=== PATIENT | male | born 1990 | race Caucasian/White ===

== ENCOUNTER → 2020-04-06 12:44 | Outpatient (BNVA) | payer OTHER, SELFPAY | PROVIDERS: Family Provider Family Medicine; Referring Provider Dermatology; Visit Provider Dermatology | DX: L64.9 Androgenic alopecia, unspecified (principal) | CPT/HCPCS: 99203 ==

== ENCOUNTER → 2020-04-21 15:00 | Outpatient (BNVA) | payer OTHER, SELFPAY | PROVIDERS: Family Provider Family Medicine; Visit Provider Licensed Practical Nurse | DX: Z53.9 Procedure and treatment not carried out, unspecified reason (principal) ==

== ENCOUNTER → 2020-04-26 13:56 | Outpatient (BNVA) | payer OTHER, SELFPAY | PROVIDERS: Family Provider Family Medicine; Visit Provider Licensed Practical Nurse | DX: M25.512 Pain in left shoulder (principal); G89.29 Other chronic pain; M50.020 Cervical disc disorder with myelopathy, mid-cervical region, unspecified level | CPT/HCPCS: 99214 ==

== ENCOUNTER 2020-05-31 08:09 | Outpatient (CLI) | payer OTHER, SELFPAY ==
--- NOTE | 2020-05-31 08:00 | US_ITS ---
WS: [id number] ULTRASOUND SOFT TISSUES LEFT neck. HISTORY: Left trapezius muscle pain. COMPARISON: None available. TECHNIQUE: 2-D and color Doppler imaging is submitted. Ultrasound is directed the soft tissues of the LEFT neck. There is no edema or fluid collection. Appe arance of the muscles and soft tissues are normal. No adenopathy. Symmetric appearance as compared to the RIGHT. US/US soft tissue/extremity [id number] IMPRESSION: Negative ultrasound LEFT neck.
== END 2020-05-31 08:10 | disposition home or self-care (01) ==
LOC: RAD 08:16
PROVIDERS: Visit Provider Licensed Practical Nurse
DX: M25.512 Pain in left shoulder (principal)
CPT/HCPCS: 76882

== ENCOUNTER → 2020-07-12 14:29 | Outpatient (BNVA) | payer OTHER, SELFPAY | PROVIDERS: Visit Provider Nurse Practitioner Family | DX: U07.1 COVID-19 (principal); J06.9 Acute upper respiratory infection, unspecified | CPT/HCPCS: 87635 ==

== ENCOUNTER → 2020-08-02 10:33 | Outpatient (BNVA) | payer OTHER, SELFPAY | PROVIDERS: Referring Provider Dermatology; Visit Provider Podiatrist Foot & Ankle Surgery | DX: M21.42 Flat foot [pes planus] (acquired), left foot; M25.572 Pain in left ankle and joints of left foot | CPT/HCPCS: 73630 ==

== ENCOUNTER 2020-08-18 11:58 | Outpatient (CLI) | payer OTHER, SELFPAY | END 2020-08-18 11:59 | disposition home or self-care (01) | LOC: SPT 11:59 | PROVIDERS: Visit Provider Podiatrist Foot & Ankle Surgery | DX: Z46.89 Encounter for fitting and adjustment of other specified devices (principal); M21.42 Flat foot [pes planus] (acquired), left foot; M25.572 Pain in left ankle and joints of left foot | CPT/HCPCS: L3030 ==

== ENCOUNTER → 2020-08-25 19:05 | Outpatient (BNVA) | payer OTHER, SELFPAY | PROVIDERS: Visit Provider Nurse Practitioner | DX: Z20.828 Contact with and (suspected) exposure to other viral communicable diseases (principal) | CPT/HCPCS: 87635 ==

== ENCOUNTER → 2020-08-26 12:27 | Outpatient (BNVA) | payer OTHER, SELFPAY | PROVIDERS: Visit Provider Nurse Practitioner | DX: Z20.828 Contact with and (suspected) exposure to other viral communicable diseases (principal) | CPT/HCPCS: 87635 ==

== ENCOUNTER 2020-10-11 12:34 | Outpatient (CLI) | payer OTHER, SELFPAY ==
[2020-10-11 15:26] LABS: Prostate Specific Antigen 0.745 ng/mL (0-4)
== END 2020-10-11 12:35 | disposition home or self-care (01) ==
PROVIDERS: Visit Provider Dermatology
DX: L64.9 Androgenic alopecia, unspecified (principal)
CPT/HCPCS: 36415; 84153

== ENCOUNTER 2020-12-28 22:37 | Emergency (ER) | payer OTHER, SELFPAY ==
[2020-12-28 22:40] VITALS: PULSE 126; RESP 18; TEMP 36.9; O2SAT 98; BMI 24.5
[2020-12-28] MEDS: ondansetron 2 mg/ML SDV 2 mL 4 MG IVP (22:40)
[2020-12-28 22:47] VITALS: BP 120/63; PULSE 130; RESP 18; O2SAT 98
--- NOTE | 2020-12-28 23:06 | ECG_ITS ---
[facility] Test Date: 2020-12-29 Pat Name: Aris Serrano Department: Room: Gender: Male Professor Of Business Administration: : 1990 Requested By: Urbano Roper Order Number: [id number] Fabien MD: Yohannes Colvin M.D. Measurements Intervals [place] Rate: 114 P: 59 OK: 195 QRS: 90 QRSD: 93 T: 59 QT: 361 QTc: 499 Interpretive Statements SINUS TACHYCARDIA POSSIBLE LEFT ATRIAL ENLARGEMENT [-0.1mV P WAVE IN V1/V2] NONSPECIFIC T-WAVE ABNORMALITY No previous ECG available for comparison Electronically Signed On 12-29-2020 18:28:28 CDT by Yohannes Colvin M.D. [id number]
--- NOTE | 2020-12-28 23:06 | XR_ITS ---
WS: [id number] Exam: XR chest 1V portable [id number] Date/Time of Exam: 12/28/2020 11:08 PM Reason For Exam: pain Findings: The lungs are clear and fully expanded. Costophrenic angles are sharp. No infiltrates. Bronchovascula r relief appears normal. Cardiac silhouette is unremarkable. Bony elements are intact. XR/XR chest 1V portable [id number] IMPRESSION: Unremarkable chest radiograph.
--- NOTE | 2020-12-28 23:07 | ED_ITS ---
HPI - Abdominal Pain General: Chief Complaint: Abdominal Pain Stated Complaint: abd pain Time Seen by Provider: 12/28/20 22:42 Source: patient Mode of arrival: ambulatory Limitations: no limitations History of Present Illness: HPI narrative: 30-year-old male who states that starting tonight at 630 start abdominal cramping had multiple episodes of vomiting. He states he also has had diarrhea as well. He states he is now had pain radiating into his chest. States the pain is diffuse in his abdomen and rates it an 8 out of 10. He states that he ate some old quinoa that may have made him ill. He denies any worsening improving factors. Denies any fevers. Associated Symptoms: Reports nausea and vomiting; Denies chills, dysuria and fever(s) Review of Systems Const: Denies: fever(s), chills, body aches or change in appetite Eyes: Denies: blurry vision or eye discomfort ENMT: Denies: throat pain or dental pain Card: Reports: chest pain Resp: Denies: dyspnea GI: Reports: abdominal pain, nausea and vomiting : Denies: dysuria Musc: Denies: neck pain or back pain Skin/Breast: Denies: rash Neuro: Denies: headache(s) Psych: Denies: depression Diogo/Lymph: Denies: easy bruising All/Imm: Denies: urticaria PFSH ED PFSH: Medical History (Updated 12/29/20 @ 00:59 by Urbano Roper MD) Cervical disc disorder with myelopathy of mid-cervical region Left shoulder pain Surgical History History of repair of ACL Family History Mother CAD (coronary artery disease) Social History Smoking and tobacco status: never smoked Alcohol intake: current Alcohol intake frequency: few times a month Household members: spouse Marital status: Current occupational status: employed Current occupation: Teacher aid and assistant inventory manager History of recent travel: Yes ([facility]) Physical Exam Const: COMMON NORMALS: no acute distress, patient oriented x3 and healthy appearing HENMT: COMMON NORMALS: normocephalic and atraumatic HEAD & SCALP: normocephalic and atraumatic Eye: COMMON NORMALS: Equal, round and reactive pupils present and EOMs intact bilaterally PUPIL: Yes Equal, round and reactive pupils present Neck/C-Spine: COMMON NORMALS: full ROM and supple Chest: COMMONS NORMALS: normal inspection of the chest and normal palpation of entire chest wall Resp: COMMON NORMALS: normal respiratory effort, No retractions, No use of accessory muscles and clear to auscultation bilaterally AUSCULTATION: clear to auscultation bilaterally Cardio: COMMON NORMALS: regular rhythm and No murmurs present (Cardio) RATE: tachycardic RHYTHM: regular rhythm GI: COMMON NORMALS: Normal to inspection, nondistended, normoactive bowel sounds present, Soft to palpation, non-tender and no masses PALPATION: Yes Soft to palpation Extremity: COMMON NORMALS: normal to inspection and full ROM Neuro: COMMON NORMALS: patient oriented x3, moves all extremities and no focal motor deficits Psych: COMMON NORMALS: mental status grossly normal, Normal thought process present and cooperative THOUGHT PROCESS: Normal thought process present Skin: COMMON NORMALS: no rashes or lesions noted and no wounds GENERAL SKIN EXAM: no rashes or lesions noted Course Vital Signs: Vital signs: Vital Signs Temperature 98.4 F 12/28/20 22:40 Pulse Rate 110 H 12/29/20 01:54 Respiratory Rate 18 12/29/20 01:54 Blood Pressure 106/64 12/29/20 01:54 Pulse Oximetry 100 12/29/20 01:54 MDM - Abdominal Pain MDM Narrative: Medical decision making narrative: Patient presents with vomiting is likely viral in origin. He does have an elevated white count likely stress reaction. Feels much improved after IV fluids and Zofran. Abdominal exam at discharge is benign. We will place him on Zofran for home and he is to follow-up his PCP in 2 to 4 days return to ER if worsening. Lab Data: Labs: Lab Results 12/28/20 12/28/20 12/28/20 Range/Units 23:20 23:30 23:30 WBC 14.6 H (4.0-10.0) 10^3/ uL RBC 5.63 H (4.1-5.3) 10^6/u L Hgb 16.5 (11.7-16.6) g/dL Hct 48.0 (42.0-52.0) % MCV 85.3 (80-94) fL MCH 29.3 (28.0-34.0) pg MCHC 34.4 (30.0-36.0) g/dL RDW 11.9 L (12.1-15.1) % Plt Count 264 (130-400) 10^3/c mm MPV 10.8 H (7.4-10.4) fL Neut % (Auto) 86.9 % Lymph % (Auto) 3.2 % Owen % (Auto) 9.0 % Eos % (Auto) 0.3 % Baso % (Auto) 0.2 % Neut # (Auto) 12.65 H (1.8-7.7) 10^3/u L Lymph # (Auto) 0.5 L (0.8-4.8) 10^3/u L Owen # (Auto) 1.3 H (0.2-0.9) 10^3/u L Eos # (Auto) 0.1 (0.0-0.8) 10^3/u L Baso # (Auto) 0.0 (0.0-0.1) 10^3/u L Nucleated RBC % (a uto) 0 % Nucleated RBCs # 0.0 /100WBC Sodium 140 (136-145) mmol/L Potassium 4.0 (3.5-5.1) mmol/L Chloride 103 (98-107) mmol/L Carbon Dioxide 21 L (22-29) mmol/L Anion Gap 20.0 H (5-19) BUN 17 (6-20) mg/dL Creatinine 1.0 (0.7-1.2) mg/dL GFR Calculation 87.7 L (90-130) mL/min Glucose 145 H (65-115) mg/dL Calculated Osmolal ity 294 (285-295) mOsm/k g Calcium 9.1 (8.5-10.5) mg/dL Total Bilirubin 1.2 (0.15-1.2) mg/dL AST 36 (0-40) U/L ALT 47 H (0-41) U/L Alkaline Phosphata se 53 (40-130) IU/L Total Protein 7.7 (6.6-8.7) g/dL Albumin 4.7 (3.5-5.2) g/dL Globulin 3.0 (1.3-4.6) g/dL Lipase 34 (13-60) U/L Urine Color Yellow (Yellow) Urine Appearance Clear (CLEAR) Urine pH 8 H (5-7) Ur Specific Gravit y 1.010 (1.005-1.030) Urine Protein Neg (Negative) Urine Glucose (UA) Norm (Normal) Urine Ketones 3+ H (Negative) Urine Blood Neg (Negative) Urine Nitrate Negative (Negative) Urine Bilirubin 1+ H (Negative) Prot Sulfosalicyli c Acd Negative (Negative) Urine Urobilinogen 1 H (Negative) mg/dL Ur Leukocyte Yessica ase Trace H (Negative) Urine RBC 0-4 H (0-2) /hpf Urine WBC 0-4 H (0-5) /hpf Ur Squamous Epith Cells 0-4 H (0-5) /hpf Amorphous Sediment Not Reportable Urine Bacteria Trace (NONE) /hpf Urine Mucus 2+ /hpf Imaging Data ^: CXR: Attestation: I personally reviewed and interpreted this imaging study as follows: My impression: No acute abnormality CT Abd/Pel: Attestation: I personally reviewed and interpreted this imaging study as follows: Radiologist's impression: [address] [address] [address] Scan Report Signed Patient: Aris Serrano Unit #: [id number] : 1990 Age/Sex: 30 / M ADM Date: 12/28/20 Loc: ER Room/Bed: Attending Dr: Ordering Provider/Ordering MD: Urbano Roper MD Date of Service: 12/28/20 Procedure(s): CT abdomen pelvis w con* [id number] Accession Number(s): [id number] Report Number: [id number] PROCEDURE INFORMATION: Exam: CT Abdomen And Pelvis With Contrast Exam date and time: 12/28/2020 11:44 PM Age: 30 years old Clinical indication: Vomiting; Abdominal pain; Patient HX: Generalized abd pain with n/v. TECHNIQUE: Imaging protocol: Computed tomography of the abdomen and pelvis with contrast. Radiation optimization: All CT scans at this facility use at least one of these dose optimization techniques: automated exposure control; mA and/or kV adjustment per patient size (includes targeted exams where dose is matched to clinical indication); or iterative reconstruction. Contrast material: OMNI 300; Contrast volume: 95 ml; Contrast route: INTRAVENOUS (IV); COMPARISON: No relevant prior studies available. RADIATION DOSE METRICS: Total DLP (mGy-cm): 1424.53 FINDINGS: Lungs: The lung bases are clear. Liver: Normal. No mass. Gallbladder and bile ducts: Normal. No calcified stones. No ductal dilation. Pancreas: Normal. No ductal dilation. Spleen: Normal. No splenomegaly. Adrenal glands: Normal. No mass. Kidneys and ureters: Normal. No hydronephrosis. Stomach and bowel: Scattered fluid throughout the small bowel without abnormal distention. Fluid is noted in the colon indicating increased motility. Appendix: No evidence of appendicitis. Intraperitoneal space: Unremarkable. No free air. No significant fluid collection. Vasculature: Unremarkable. No abdominal aortic aneurysm. Lymph nodes: Unremarkable. No enlarged lymph nodes. Urinary bladder: Unremarkable as visualized. Reproductive: Unremarkable as visualized. Bones/joints: Unremarkable. No acute fracture. Soft tissues: 1 cm umbilical hernia consist of fatty tissue only. CT/CT abdomen pelvis w con* [id number] IMPRESSION: 1. Relatively subtle findings suggesting enterocolitis. 2. Small right hydrocele EKG Data ^: EKG 1: Attestation: I personally reviewed and interpreted this EKG as follows: EKG interpretation date: 12/29/20 EKG interpretation time: 00:05 Interpretation: sinus tach hr [address] or t wave abnormalities qrs 93 qtc 429 Discharge Plan Discharge Patient Disposition: Home Clinical Impression: Vomiting Qualifiers: Vomiting type: unspecified Vomiting Intractability: non-intractable Nausea presence: with nausea Qualified Code(s): R11.2 - Nausea with vomiting, unspecified Condition: Stable Prescriptions: New ondansetron 4 mg tablet,disintegrating 4 mg PO Q6H PRN (Reason: nausea and vomiting) Qty: 14 RF: 0 No Action clomiphene citrate 50 mg tablet 25 mg PO .COMPLEX RF: 0 finasteride 5 mg tablet 5 mg PO DAILY Qty: 30 RF: 3 Discharge Orders: Discharge ED (Routine); Ordered 12/29/20 Ordered By: Urbano Roper Discharge Diet: Advance as tolerated Discharge Activity: Resume usual activity Patient Instructions: Acute Nausea and Vomiting (ED) Coding Level of Care Code ED [employer]ne[employer] for Chg Fwd Exam Comprehensive
[2020-12-28] MEDS: sodium chloride 0.9% 1,000 ML 999 ML IV (23:24)
[2020-12-28 23:34] LABS: Basophils % 0.2 %; Eosinophils # 0.1 10^3/uL (0.0-0.8); Eosinophils % 0.3 %; Hemoglobin 16.5 g/dL (11.7-16.6); Lymphocytes # 0.5 10^3/uL (0.8-4.8); Lymphocytes % 3.2 %; Mean Corpuscular HGB Conc 34.4 g/dL (30.0-36.0); Mean Corpuscular Hemoglobin 29.3 pg (28.0-34.0); Mean Corpuscular Volume 85.3 fL (80-94); Mean Platelet Volume 10.8 fL (7.4-10.4); Monocytes # 1.3 10^3/uL (0.2-0.9); Neutrophils # 12.65 10^3/uL (1.8-7.7); Neutrophils % 86.9 %; Nucleated Red Blood Cells % 0 %; Platelet Count 264 10^3/cmm (130-400); Red Blood Count 5.63 10^6/uL (4.1-5.3); Red Cell Distribution Width 11.9 % (12.1-15.1); White Blood Count 14.6 10^3/uL (4.0-10.0)
[2020-12-28 23:36] VITALS: RESP 20; O2SAT 96
[2020-12-28] MEDS: morphine 4 mg/mL SDV 1 mL IVP (23:36)
--- NOTE | 2020-12-28 23:41 | CTR_ITS ---
PROCEDURE INFORMATION: Exam: CT Abdomen And Pelvis With Contrast Exam date and time: 12/28/2020 11:44 PM Age: 30 years old Clinical indication: Vomiting; Abdominal pain; Patient HX: Generalized abd pain with n/v. TECHNIQUE: Imaging protocol: Computed tomography of the abdomen and pelvis with contrast. Radiation optimization: All CT scans at this facility use at least one of these dose optimization techniques: automated exposure control; mA and/or kV adjustment per patient size (includes targeted exams where dose is matched to clinical indication); or iterative reconstruction. Contrast material: OMNI 300; Contrast volume: 95 ml; Contrast route: INTRAVENOUS (IV); COMPARISON: No relevant prior studies available. RADIATION DOSE METRICS: Total DLP (mGy-cm): 1424.53 FINDINGS: Lungs: The lung bases are clear. Liver: Normal. No mass. Gallbladder and bile ducts: Normal. No calcified stones. No ductal dilation. Pancreas: Normal. No ductal dilation. Spleen: Normal. No splenomegaly. Adrenal glands: Normal. No mass. Kidneys and ureters: Normal. No hydronephrosis. Stomach and bowel: Scattered fluid throughout the small bowel without abnormal distention. Fluid is noted in the colon indicating increased motility. Appendix: No evidence of appendicitis. Intraperitoneal space: Unremarkable. No free air. No significant fluid collection. Vasculature: Unremarkable. No abdominal aortic aneurysm. Lymph nodes: Unremarkable. No enlarged lymph nodes. Urinary bladder: Unremarkable as visualized. Reproductive: Unremarkable as visualized. Bones/joints: Unremarkable. No acute fracture. Soft tissues: 1 cm umbilical hernia consist of fatty tissue only. CT/CT abdomen pelvis w con* [id number] IMPRESSION: 1. Relatively subtle findings suggesting enterocolitis. 2. Small right hydrocele Radiation Dose CTDIVOL = (mGy): DLP = 1424.53 (mGy-cm)
[2020-12-28] MEDS: iohexol 300 mg/mL 100 mL Btl IV (23:47)
[2020-12-28 23:49] LABS: Alanine Aminotransferase 47 U/L (0-41); Albumin Level 4.7 g/dL (3.5-5.2); Alkaline Phosphatase 53 IU/L (40-130); Aspartate Amino Transferase 36 U/L (0-40); Blood Urea Nitrogen 17 mg/dL (6-20); Calcium 9.1 mg/dL (8.5-10.5); Carbon Dioxide 21 mmol/L (22-29); Chloride 103 mmol/L (98-107); Creatinine Clr Calc Pharmacy 128.2942; Glomerular Filtration Rate 87.7 mL/min (90-130); Glucose 145 mg/dL (65-115); Lipase 34 U/L (13-60); Osmolality Calculated 294 mOsm/kg (285-295); Sodium 140 mmol/L (136-145); Total Bilirubin 1.2 mg/dL (0.15-1.2); Total Protein 7.7 g/dL (6.6-8.7)
[2020-12-28 23:56] LABS: Add Urine Microscopic? YES; Bilirubin Urine 1+ (Negative); Blood Urine Neg (Negative); Glucose Urine UA Norm (Normal); Ketones Urine 3+ (Negative); Leukocyte Esterase Urine Trace (Negative); Nitrate Urine Negative (Negative); Protein Urine Neg (Negative); Sulfosalicylic Acid Urine Negative (Negative); Urine Appearance Clear (CLEAR); Urine Color Yellow (Yellow); Urobilinogen Urine 1 mg/dL (Negative); pH Urine 8 (5-7)
[2020-12-28 23:57] LABS: Add Urine Culture? No; Bacteria Urine TRACE /hpf; Mucus Urine 2+ /hpf; RBC Urine 0-4 /hpf (0-2); Squamous Epithelial Cell Urine 0-4 /hpf (0-5); WBC Urine 0-4 /hpf (0-5)
[2020-12-29] MEDS: sodium chloride 0.9% 1,000 ML 999 ML IV ×2 (00:21→01:11)
[2020-12-29 00:45] VITALS: BP 116/70; PULSE 68; RESP 16; O2SAT 98
[2020-12-29 01:54] VITALS: BP 106/64; PULSE 110; RESP 18; O2SAT 100
== END 2020-12-29 01:50 | disposition home or self-care (01) ==
PROVIDERS: Emergency Provider Emergency Medicine
DX: R11.2 Nausea with vomiting, unspecified (principal)
CPT/HCPCS: 71045; 74177; 80053; 81001; 83690; 85025; 93005; 96361; 96374; 96375; 99284; J2270; J2405; J7030; Q9967

== ENCOUNTER 2022-05-06 20:13 | Emergency (ER) | payer BC, OTHER, SELFPAY ==
[2022-05-06 20:23] VITALS: BP 152/96; PULSE 77; RESP 16; TEMP 36.4; O2SAT 98
--- NOTE | 2022-05-06 21:12 | CTR_ITS ---
PROCEDURE INFORMATION: Exam: CT Head Without Contrast Exam date and time: 05/06/2022 10:36 PM Age: 31 years old Clinical indication: Injury or trauma; Fall; Blunt trauma (contusions or hematomas); Additional info: Fell down stairs TECHNIQUE: Imaging protocol: Computed tomography of the head without contrast. Radiation optimization: All CT scans at this facility use at least one of these dose optimization techniques: automated exposure control; mA and/or kV adjustment per patient size (includes targeted exams where dose is matched to clinical indication); or iterative reconstruction. COMPARISON: CT cervical spine w con [id number] 05/16/2019 10:02 AM RADIATION DOSE METRICS: Total DLP (mGy-cm): 1000.85 FINDINGS: Brain: Normal. No hemorrhage. Unremarkable white matter. No mass effect. Cerebral ventricles: No ventriculomegaly. Paranasal sinuses: Visualized sinuses are unremarkable. No fluid levels. Mastoid air cells: Visualized mastoid air cells are well aerated. Bones/joints: Unremarkable. No acute fracture. Soft tissues: Unremarkable. CT/CT head wo con* [id number] IMPRESSION: No acute intracranial abnormality.
--- NOTE | 2022-05-06 21:12 | XRR_ITS ---
PROCEDURE INFORMATION: Exam: XR Left Tibia and Fibula Exam date and time: 05/06/2022 10:00 PM Age: 31 years old Clinical indication: Injury or trauma; Blunt trauma; Lower leg; Injury date: 05/06/2022; Injury details: Fall down stairs today; Left wrist anteriorly sliced open (approx 1.5 across joint space); Left leg lengthening approx 6 wks ago; Prior surgery; Surgery date: 1-6 months TECHNIQUE: Imaging protocol: Radiologic exam of the Left tibia and fibula. Views: 2 views. COMPARISON: CR XR foot LT min 3V* [id number] 08/02/2020 10:39 AM FINDINGS: Bones/joints: There is osteotomy of the midshaft of the left tibia within a proximally 2 cm gap. The tibia is internally fixated with an intramedullary delmer. There is no evidence for fracture of the delmer. There does appear to be slight posterior angulation at the level of osteotomy by proximally 7 degrees. Correlation with prior postoperative films suggested if available. There is osteotomy of the distal fibula with a 17 mm gap with slight posterior displacement, comparison with prior postoperative films is suggested. Soft tissues: Normal. XR/XR tibia fibula LT 2V [id number] IMPRESSION: 1. Osteotomies of the left tibia and fibula. 2. Intramedullary delmer in the left tibia. 3. Slight posterior angulation of the intramedullary delmer.
--- NOTE | 2022-05-06 21:12 | CTR_ITS ---
PROCEDURE INFORMATION: Exam: CT Cervical Spine Without Contrast Exam date and time: 05/06/2022 10:39 PM Age: 31 years old Clinical indication: Injury or trauma; Fall; Blunt trauma; Additional info: Neck pain fall down stairs TECHNIQUE: Imaging protocol: Computed tomography of the cervical spine without contrast. Radiation optimization: All CT scans at this facility use at least one of these dose optimization techniques: automated exposure control; mA and/or kV adjustment per patient size (includes targeted exams where dose is matched to clinical indication); or iterative reconstruction. COMPARISON: CT cervical spine w con [id number] 05/16/2019 10:02 AM RADIATION DOSE METRICS: Total DLP (mGy-cm): 197.07 FINDINGS: Bones/joints: There is reversal of the normal lordotic curvature of the cervical spine unchanged from previous. No fracture is identified. There is mild narrowing of the C6-C7 disc space with some uncovertebral hypertrophy, worse on left than on the right. Lungs: Lung apices are normal. Soft tissues: Unremarkable. CT/CT cervical spin wo con* [id number] IMPRESSION: 1. Degenerative changes, stable compared with 05/16/2019. 2. No fracture is identified.
--- NOTE | 2022-05-06 21:12 | XRR_ITS ---
PROCEDURE INFORMATION: Exam: XR Left Wrist Exam date and time: 05/06/2022 10:06 PM Age: 31 years old Clinical indication: Injury or trauma; Fall; Bleeding/hemorrhage; Left; Injury date: 05/06/2022; Injury details: Anteriorly open wound across wrist joint approx 1.5 ; Additional info: Wrist pain p fall TECHNIQUE: Imaging protocol: Radiologic exam of the Left wrist. Views: 3 or more views. COMPARISON: US soft tissue/extremity [id number] 05/31/2020 8:32 AM FINDINGS: Bones/joints: There is a perilunate posterior dislocation of the wrist. There is deformity of the scaphoid bone suspect on the AP and oblique projection. Scaphoid fracture is suspected. Soft tissues: Swelling XR/XR wrist LT min 3V* [id number] IMPRESSION: 1. Dorsal perilunate dislocation. 2. Scaphoid fracture suspected.
--- NOTE | 2022-05-06 21:12 | XRR_ITS ---
PROCEDURE INFORMATION: Exam: XR Right Toe(s) Exam date and time: 05/06/2022 10:00 PM Age: 31 years old Clinical indication: Injury or trauma; Blunt trauma; Foot; Injury details: Fall down stairs today; Left wrist anteriorly sliced open (approx 1.5 across joint space); Left leg lengthening approx 6 wks ago; Additional info: Fall toe pain TECHNIQUE: Imaging protocol: Radiologic exam of the Right toes. Views: Minimum 2 views. COMPARISON: US soft tissue/extremity [id number] 05/31/2020 8:32 AM FINDINGS: Bones/joints: Normal. Soft tissues: Normal. XR/XR toe RT min 2V [id number] IMPRESSION: No acute findings.
--- NOTE | 2022-05-06 21:33 | ED_ITS ---
HPI - Fall General: Chief Complaint: Fall Stated Complaint: fall, left wrist pain, left leg, neck pain Time Seen by Provider: 05/06/22 20:50 Source: patient and family History of Present Illness: 31-year-old male who fell down 16 stairs at home. He believes he remembers the whole thing, but does not remember how he set up at the end. He is not complaining of a headache. He does complain of left-sided neck pain, left wrist pain, left leg pain, and right great toe pain. He had a surgical procedure 6 to 7 weeks ago to lengthen his left leg, and has a delmer with hardware in the left tibia. He is swollen in the area, and is worried about this. MD complaint: fall Onset (ago): hour(s) Fall from: standing and down stairs (#) (6-8) Fall witnessed: yes, by family Place fall occurred: home Loss of consciousness: Unsure Prolonged down time: no Symptoms prior to fall: none Context: tripped/slipped Location of injury: neck Location of injury - extremities: Left: forearm and lower leg and Right: foot Associated symptoms-after fall: Reports difficulty walking and neck pain; Denies abdominal pain, chest pain, confusion, headache(s), numbness, short of breath or weakness Review of Systems Const: Denies: fever(s) Eyes: Denies: change in vision Card: Denies: chest pain Resp: Denies: dyspnea, productive cough or non-productive cough GI: Denies: abdominal pain Musc: Reports: neck pain Neuro: Reports: difficulty walking; Denies: headache(s) or confusion PFS ED PFSH: Medical History (Updated 05/07/22 @ 01:18 by Jerald Gonzalez DO) Cervical disc disorder with myelopathy of mid-cervical region Left shoulder pain Surgical History (Updated 05/07/22 @ 01:18 by Jerald Gonzalez DO) History of repair of ACL Family History Mother CAD (coronary artery disease) Social History Smoking and tobacco status: never smoked Alcohol intake: current Alcohol intake frequency: few times a month Household members: spouse Marital status: Current occupational status: employed Current occupation: Teacher aid and rehabilitation assistant History of recent travel: Yes ([facility]) Physical Exam Const: COMMON NORMALS: no acute distress and alert GENERAL APPEARANCE: cooperative; not ill appearing and not frail appearing HENMT: COMMON NORMALS: normocephalic and atraumatic HEAD & SCALP: normocephalic and atraumatic FACE & SINUS: face symmetric Eye: COMMON NORMALS: Equal, round and reactive pupils present and EOMs intact bilaterally PUPIL: Yes Equal, round and reactive pupils present Neck/C-Spine: CERVICAL SPINE: Yes pain with cervical ROM, No Cervical spine tenderness and Yes Paracervical muscle tenderness Chest: CHEST: Yes Symmetrical chest wall rise Resp: COMMON NORMALS: normal respiratory effort, No use of accessory muscles and clear to auscultation bilaterally AUSCULTATION: clear to auscultation bilaterally Cardio: COMMON NORMALS: regular rate and regular rhythm RATE: regular rate RHYTHM: regular rhythm GI: COMMON NORMALS: Normal to inspection, nondistended, normoactive bowel sounds present Extremity: NARRATIVE EXTREMITY EXAM: Exam of the right wrist reveals slight swelling. There is tenderness, mainly on the radial styloid. Sensation and capillary refill are intact distally. Examination left leg reveals diffuse swelling and tenderness without deformity. Neuro: [place] COMA SCALE: document GCS findings [place] coma scale eye opening: Spontaneous [place] coma scale verbal response: Orientated [place] coma scale motor response: Obey commands [place] coma scale total score: 15 SENSORIUM/ORIENTATION: Yes alert Procedures Orthopedic Joint Reduction Joint #1: Time Out Performed: Yes Side: left Joint Reduction Location: wrist Analgesia: procedural sedation Technique used: traction/counter-traction Post-reduction neuro exam: intact Post-reduction vascular: intact Post Reduction X-Ray Obtained: Yes Post Reduction X-Ray Results: reduced Splint Applied: Yes Patient Tolerated Procedure: well and no complications Procedural Sedation Indication: fracture/dislocation reduction ASA Class: I Preparation: ekg monitor tech applied, pulse oximeter, supplemental O2 applied, suction/airway equipment at bedside and IV secured Midazolam: IV Midazolam dose (mg): 1 IV Etomidate dose (mg): 15 Complications: none Course Consultations: Consultation #1: [facility]. Vital Signs: Vital signs: Vital Signs Temperature 97.3 F L 05/06/22 23:30 Pulse Rate 89 05/07/22 01:35 Respiratory Rate 19 H 05/07/22 01:35 Blood Pressure 132/85 05/07/22 01:35 Pulse Oximetry 100 05/07/22 01:35 Oxygen Delivery Me thod 05/06/22 23:30 MDM - Fall Medical Decision Making This patient sustained a Kevyn lunate wrist dislocation on the left after his fall down the stairs. It was successfully reduced under conscious sedation. He is placed in a sugar Tong splint, and asked to follow up with orthopedics. As for his leg. It appears on X-ray that there is slight angular deformity of the delmer in his tibia. I discussed this with orthopedics at the [facility], as this is the facility that placed the delmer. They have viewed pictures, and suggest outpatient orthopedic follow up next week. They stated splint was not necessary, as the delmer is stable, and he will be non weight bearing. Lab Data Radiology Impressions Cervical Spine CT 05/06/22 21:12 IMPRESSION: 1. Degenerative changes, stable compared with 05/16/2019. 2. No fracture is identified. Head CT 05/06/22 21:12 IMPRESSION: No acute intracranial abnormality. Tibia/Fibula X-Ray 05/06/22 21:12 IMPRESSION: 1. Osteotomies of the left tibia and fibula. 2. Intramedullary delmer in the left tibia. 3. Slight posterior angulation of the intramedullary delmer. Toe X-Ray 05/06/22 21:12 IMPRESSION: No acute findings. Wrist X-Ray 05/07/22 00:29 IMPRESSION: Post reduction views. Discharge Plan Discharge Patient Disposition: Home Clinical Impression: Closed perilunate dislocation of left wrist, Status post osteotomy Condition: Stable Prescriptions: New Percocet 7.5-325 mg tablet 1 tab PO Q6H PRN (Reason: pain) Qty: 14 0RF No Action clomiphene citrate 50 mg tablet 25 mg PO .COMPLEX Rx Instructions: 25 mg PO; finasteride 5 mg tablet 5 mg PO DAILY Qty: 30 3RF Rx Instructions: Take 1/4 tab (1.25mg) PO daily ondansetron 4 mg tablet,disintegrating 4 mg PO Q6H PRN (Reason: nausea and vomiting) Qty: 14 0RF Discharge Orders: Discharge ED (Routine); Ordered 05/07/22 Ordered By: Jerald Gonzalez Referrals: Markell Santamaria MD [Primary Care Provider] - Patient Instructions: Dislocation - Wrist Activity Restrictions/Additional Instructions: No weightbearing to the left lower extremity. Call your orthopedic surgeon on Sunday. They want to see you this week. Stay in wrist splint until seen by orthopedic surgeon as well. You will need repeat x-rays at your visit. Tylenol or pain medication for pain. Ice frequently. Return for any problems whatsoever Coding Level of Care Code ED Combo Welder for g Fwd Exam Comprehensive
[2022-05-06 21:37] VITALS: BP 133/98; PULSE 85; RESP 19; O2SAT 98; O2SAT 99
[2022-05-06] MEDS: HYDROmorphone 1 mg/mL INJ 1 mL IM (21:37)
[2022-05-06] MEDS: ondansetron 4 MG Tablet PO (21:37)
[2022-05-06 22:00] VITALS: PULSE 82; RESP 19; O2SAT 100
[2022-05-06 23:30] VITALS: BP 140/74; PULSE 81; RESP 18; RESP 20; TEMP 36.3; O2SAT 100; O2SAT 99
[2022-05-06] MEDS: ondansetron 2 mg/ML SDV 2 mL 4 MG IVP (23:30)
[2022-05-06] MEDS: sodium chloride 0.9% 1,000 ML 125 ML IV (23:30)
[2022-05-06] MEDS: HYDROmorphone 1 mg/mL INJ 1 mL IVP (23:30)
[2022-05-07] VITALS (11 sets, daily range): BP systolic 124–155; BP diastolic 74–106; PULSE 62–99; RESP 15–19; O2SAT 100
--- NOTE | 2022-05-07 00:29 | XRR_ITS ---
PROCEDURE INFORMATION: Exam: XR Left Wrist Exam date and time: 05/07/2022 12:49 AM Age: 31 years old Clinical indication: Injury or trauma; Fall; Blunt trauma (contusions or hematomas); Wrist; Left; Additional info: Post reduc TECHNIQUE: Imaging protocol: Radiologic exam of the Left wrist. Views: 1 or 2 views. COMPARISON: CR XR wrist LT min 3V* [id number] 05/06/2022 10:06 PM FINDINGS: Limitations: Examination is made through a semi opaque splint which obscures fine bone detail. Bones/joints: Previously noted perilunate dislocation has been reduced. No fracture is demonstrated. Soft tissues: Soft tissues are obscured by the splint. XR/XR wrist LT 2V [id number] IMPRESSION: Post reduction views.
[2022-05-07] MEDS: midazolam 1 mg/mL INJ 5 ML IV (00:33)
--- NOTE | 2022-05-07 00:58 | PC.NURSE ---
x ray at bedside to confirm reduction
[2022-05-07] MEDS: oxyCODONE-APAP 5-325 mg Tablet 2 TAB PO (01:35)
== END 2022-05-07 01:47 | disposition home or self-care (01) ==
PROVIDERS: Emergency Provider Emergency Medicine; PCP Family Medicine
DX: S63.095A Other dislocation of left wrist and hand, initial encounter (principal); Z98.890 Other specified postprocedural states; W10.8XXA Fall (on) (from) other stairs and steps, initial encounter
CPT/HCPCS: 25690; 70450; 72125; 73100; 73110; 73590; 73660; 96361; 96372; 96374; 96375; 99285; J1170; J2250; J2405; J3490; J7030; Q0162

== ENCOUNTER 2023-02-20 14:25 | Outpatient (CLI) | payer BC, OTHER, SELFPAY ==
[2023-02-20 15:19] LABS: Prostate Specific Antigen 0.313 ng/mL (0-4)
== END 2023-02-20 14:26 | disposition home or self-care (01) ==
PROVIDERS: PCP Family Medicine; Visit Provider Nurse Practitioner Family
DX: L64.8 Other androgenic alopecia (principal)
CPT/HCPCS: 36415; 84153

== ENCOUNTER 2024-11-18 12:17 | Outpatient (CLI) | payer OTHER, SELFPAY ==
--- NOTE | 2024-11-18 | ECG_ITS ---
[facility] Test Date: 2024-11-18 Pat Name: Aris Serrano Department: Room: Gender: Male Associate Director Of Sales: : 1990 Requested By: Carmen Gna Order Number: [id number] Fabien MD: Clair Monroe M.D. Interpretive Statements Lung unchanged pre/post procedure; Intraprocedure shortess of breath; Symptoms resoled by discharge PROCEDURE: At the baseline, the patient's blood pressure was 120/63 with a heart rate of 81. The baseline electrocardiogram showed normal sinus rhythm with normal ST-Ts. Early repolarization changes in the inferolateral leads. The patient exercised for 9 minutes on a standard [place] protocol. Patient attained a maximum heart rate of 164 beats per minute(88% of the maximum predicted heart rate) with a blood pressure at the peak exercise of 173/61 mm Hg. The EKG at the peak exercise revealed no significant changes. Patient did not have any chest pain or any significant cardiac arrhythmias with the exercise During the recovery phase, there were no new changes. No new arrhythmias Blood pressure at the end of the recovery phase was 147/60 mm Hg with a heart rate of 104 per minute. CONCLUSION: 1. Normal EKG response to treadmill exercise 2. No exercise-induced chest pain or cardiac arrhythmia 3. Fair exercise tolerance, attained a maximum of 10.2 METs Electronically Signed On 11-21-2024 16:28:53 CDT by Clair Monroe M.D. [email or web address]
[2024-11-18 13:17] VITALS: BP 147/60; PULSE 99
== END 2024-11-18 12:18 | disposition home or self-care (01) ==
LOC: CDL 12:19
PROVIDERS: PCP Family Medicine; Visit Provider Family Medicine
DX: R00.2 Palpitations (principal)
CPT/HCPCS: 93017